=== PATIENT | male | born 1980 | race Hispanic/Latino ===

== ENCOUNTER 2018-05-31 01:02 | Emergency (ER) | payer BC, OTHER ==
[2018-05-31 01:23] VITALS: BP 137/84; PULSE 76; RESP 17; TEMP 98; O2SAT 98
--- NOTE | 2018-05-31 02:16 | ED PDOC ---
HPI: CCC, URI, Sore Throat Time Seen by Provider: 05/31/18 01:38 Chief Complaint (Nursing): ENT Problem Chief Complaint (Provider): throat pain History Per: Patient History/Exam Limitations: no limitations Onset/Duration Of Symptoms: Days (4) Current Symptoms Are (Timing): Still Present Location Of Pain: Throat Additional Complaint(s): 38 y/o male presents for evaluation of throat pain x 4 days. Patient states he was evaluated by his PMD yesterday and had negative strep test and was prescribed Zpak but states pain getting worse. Patient states he had difficulty swallowing tonight, prompting ED visit. Denies fever, cough, congestion, vomiting, chest pain, shortness of breath, palpitations, abdominal pain, sick contacts. Past Medical History Reviewed: Historical Data, Nursing Documentation, Vital Signs Vital Signs: Last Vital Signs Temp 98.0 F 05/31/18 01:11 Pulse 76 05/31/18 01:11 Resp 17 05/31/18 01:11 BP 137/84 05/31/18 01:11 Pulse Ox 98 05/31/18 02:16 - Medical History PMH: No Chronic Diseases - Family History Family History: States: No Known Family Hx - Living Arrangements Living Arrangements: With Family - Allergies Allergies/Adverse Reactions: Allergies Allergy/AdvReac Type Severity Reaction Status Date / Time No Known Allergies Allergy Verified 05/31/18 01:22 Review of Systems ROS Statement: Except As Marked, All Systems Reviewed And Found Negative ENT: Positive for: Throat Pain Physical Exam - Reviewed Nursing Documentation Reviewed: Yes Vital Signs Reviewed: Yes - Physical Exam Appears: Positive for: Well, Non-toxic, No Acute Distress Head Exam: Positive for: ATRAUMATIC, NORMAL INSPECTION, NORMOCEPHALIC Skin: Positive for: Normal Color ENT: Positive for: TM Is/Are (clear b/l), Pharyngeal Erythema, Tonsillar Exudate (b/l), Other (uvula midline) Neck: Positive for: Normal, Painless ROM Cardiovascular/Chest: Positive for: Regular Rate, Rhythm Respiratory: Positive for: Normal Breath Sounds Gastrointestinal/Abdominal: Positive for: Normal Exam Back: Positive for: Normal Inspection Extremity: Positive for: Normal ROM Lymphatic: Positive for: Normal Exam Neurologic/Psych: Positive for: Alert, Oriented (x3) - Laboratory Results Result Diagrams: 05/31/18 02:20 05/31/18 02:20 - ECG O2 Sat by Pulse Oximetry: 98 - Progress ED Course And Treament: labs, strep, IV toradol, IV decadron On re-eval, patient states he is feeling better Patient educated on findings, discharged with instructions to follow up PMD 2-3 days Advised Ibuprofen PRN Return precautions given Disposition - Clinical Impression Clinical Impression: Tonsillitis, Pharyngitis - Patient ED Disposition Is Patient to be Admitted: No Counseled Patient/Family Regarding: Studies Performed, Diagnosis, Need For Followup - Disposition Disposition: Routine/Home Disposition Time: 04:06 Condition: IMPROVED Instructions: Viral Pharyngitis Forms: [employer] ([place])
[2018-05-31 03:02] LABS: BASO # 0.1 K/uL (0.0-0.2); BASO % 0.4 % (0.0-2.0); EOS # 0.1 K/uL (0.0-0.7); EOS % 0.9 % (0.0-4.0); HEMOGLOBIN 15.2 g/dL (12.0-18.0); LYMPH # 1.3 K/uL (1.0-4.3); MEAN CELL VOLUME 87.6 fl (80.0-94.0); MEAN CORPUSCULAR HEMOGLOBIN 29.9 pg (27.0-31.0); MEAN CORPUSCULAR HGB CONC 34.1 g/dL (33.0-37.0); MEAN PLATELET VOLUME 9.1 fl (7.2-11.7); MONO # 1.4 K/uL (0.0-0.8); MONO % 10.5 % (0.0-10.0); NEUT # 10.1 K/uL (1.8-7.0); NEUT % 78.2 % (50.0-75.0); RBC 5.08 Mil/uL (4.40-5.90); RED CELL DISTRIBUTION WIDTH 13.5 % (11.5-14.5)
[2018-05-31 03:08] LABS: ALB/GLOB RATIO 1.5 (1.0-2.1); ALBUMIN 4.7 g/dL (3.5-5.0); ALT/SGPT 41 U/L (21-72); AST/SGOT 36 U/L (17-59); BLOOD UREA NITROGEN 9 mg/dl (9-20); CALCIUM 9.7 mg/dL (8.4-10.2); GFR AFRICAN-AMERICAN > 60; GFR NON-AFRICAN AMERICAN > 60
== END 2018-05-31 04:26 | disposition home or self-care (01) ==
LOC: H.ER 01:02
DX: J03.90 Acute tonsillitis, unspecified (principal)
CPT/HCPCS: 80053; 85025; 86308; 87070; 87430; 96374; 96375; 99282; J1100; J1885